=== PATIENT | male | born 1930 | race Caucasian/White ===

== ENCOUNTER → 2017-06-07 | Outpatient (CLI) | payer SELFPAY ==
--- NOTE | 2017-06-09 10:49 | PE ---
EXAMINATION TYPE: PET CT fusion skull to thigh DATE OF EXAM: 06/07/2017 COMPARISON: Chest x-ray 05/15/2017, most recent chest CTs 05/18/2015. Prior PET/CT: 05/27/2015 HISTORY: Lung cancer TECHNIQUE: Following the intravenous administration of 15.48 mCi of F-18 FDG, whole body images are performed from the skull base to the midthigh. Images are reviewed on the computer in the coronal, a xial, and sagittal planes. Reconstructed rotating images are created on independent workstation and reviewed on the computer. A localization and attenuation correction CT is performed in conjunction with the PET scan. DLP: 528.56 mGycm SCAN: Subsequent Blood glucose: 153 mg/dL Average Mediastinum SUV: 1.59 Average Liver SUV: 2.24 FINDINGS: NECK: No abnormal uptake THORAX: No abnormal uptake. There is a 1.2 x 1.0 cm area of increased density within the posterior la teral right upper lobe. Image 83. This area appears larger than the localization CT 05/27/2015. This h as intermediate SUV value 1.14. ABDOMEN: There is somewhat focal uptake within the hepatic flexure with an SUV value of 5.36. Underly ing neoplasm is not excluded. This could be normal bowel uptake PELVIS: There is a focal hot area with an SUV value of 4.4 in the right para-aortic anterior to the i nferior vena cava at the level of bifurcation. This could be associated with radiotracer within the r ight renal collecting system. This is somewhat more medial than typically expected although there is a suggestion of some nondilated ureter in this region. There is a small focus of radiotracer accumula tion within the distal rectum with an SUV value of 4.15. This could be bowel activity. OSSEOUS STRUCTURES: No abnormal uptake LOCALIZATION CT: The ascending thoracic aorta at the level of main pulmonary artery is 3.5 cm per the main pulmonary artery the bifurcation is 3.0 cm coronary artery calcification is present. There is a stent placement and aneurysm repair of the distal thoracic aorta as it enters the abdomen through th e diaphragm. Vascular calcifications within the aorta. Urinary bladder is decompressed and cannot be evaluated. COMPARISON: Aneurysm size is below the diaphragm appears stable. Stent passes through this region. En dovascular leak cannot be evaluated with lack of intravenous contrast. IMPRESSION: 1. Intermediate SUV 1.14 within the increasing density within the posterior lateral right upper lung field this appears larger and more dense than the comparison localization CT 05/27/2015. Low metabolic activity neoplasm is not excluded. 2. Some focal increased uptake within the colon at the hepatic flexure and at the level the rectum of uncertain etiology. This could be physiologic. Somewhat more focal in typically identified and neopl asm should be considered. There is not been a recent colonoscopy or lower GI study, this could furthe r evaluate these regions. A Yellow message has been communicated to Navi Connolly MD~[id number] via the [employer] [facility] system on 06/09/2017 10:47 AM, Message ID [id number].
== END | disposition home or self-care (01) ==
LOC: RADPETMAIN 11:16
PROVIDERS: ATTEND Internal Medicine
DX: C34.91 Malignant neoplasm of unspecified part of right bronchus or lung (principal)
CPT/HCPCS: 78815; A9552

== ENCOUNTER → 2017-08-25 | Outpatient (CLI) | payer MEDICARE ==
[2017-08-25 15:24] LABS: Blood Urea Nitrogen 20 mg/dL (9-20)
--- NOTE | 2017-08-25 16:17 | CT ---
EXAMINATION TYPE: CT chest w con DATE OF EXAM: 08/25/2017 COMPARISON: Chest CT May 18, 2015 and older studies. Most recent PET/CT June 07, 2017 and old er studies. HISTORY: Follow up scan per patient CT DLP: 634 mGycm Automated exposure control for dose reduction was used. CONTRAST: CT scan of the chest is performed with IV Contrast, patient injected with 100 mL of Isovue 300. FINDINGS: LUNGS: Area of previously visualized groundglass opacity posterior lateral right upper lobe is now mo re nodular or solid with spiculated margins measuring 1.5 x 1.0 cm on current study axial image 18, i ncreased prominence from recent PET/CT and is more suspicious in appearance. No new suspicious nodule s or masses are present. There is stable 3 mm nodule superior aspect right lower lobe axial image 29. No pleural effusion or pneumothorax is identified. Tracheobronchial tree is patent. MEDIASTINUM: There are no greater than 1 cm hilar or mediastinal lymph nodes. No pericardial effusi on is seen. [place] Coronary artery calcification is present which is noted marker for coronary arter y disease. There are however post CABG changes with mediastinal clips and sternal wires that are pres ent. There is ectasia to the descending aorta. There are patent stent graft in the distal thoracic ao rta extending into abdominal aorta where there was [facility] [place] aneurysm measuring up to 5.9 cm transversel y axial image 60. OTHER: Cholecystectomy clips are redemonstrated. There is moderate to severe multilevel spurring in the thoracic spine. IMPRESSION: Continued growth and suspicion of posterior lateral right upper lobe lesion. Due to loca tion adjacent to rib may be difficult for percutaneous sampling. Consider repeat PET/CT.
== END | disposition home or self-care (01) ==
LOC: RADCTMAIN 14:49
PROVIDERS: ATTEND Radiology Radiation Oncology
DX: C34.11 Malignant neoplasm of upper lobe, right bronchus or lung (principal); Z88.5 Allergy status to narcotic agent
CPT/HCPCS: 82565; 84520; 71260; 36415; Q9967

== ENCOUNTER → 2017-11-27 | Outpatient (CLI) | payer MEDICARE ==
[2017-11-27 12:16] LABS: Blood Urea Nitrogen 15 mg/dL (9-20)
--- NOTE | 2017-11-27 15:29 | CT ---
EXAMINATION TYPE: CT chest w con DATE OF EXAM: 11/27/2017 COMPARISON: 08/25/2017 HISTORY: 87-year-old male lung cancer, Follow up neoplasm right upper lobe. TECHNIQUE: Contiguous axial scanning of the chest after the administration of 100 mL of Isovue M300. Coronal/sagittal reconstructions performed. CT DLP: 540.7mGycm. Automatic exposure control utilized for a dose reduction. FINDINGS: Median sternotomy wires are present. Heart upper limits of normal in size without pericardial effusio n. Coronary vessel calcifications are present. Question prior interposition graft of the ascending aorta. The aortic root measures 5.1 cm, stable. Proximal arch is aneurysmal 4.8 cm, unchanged. Upper descending thoracic aorta aneurysmal 3.8 cm, unc hanged. Lower descending thoracic aorta measures 3.4 cm. No thoracic lymphadenopathy. Irregular nodule peripheral right upper lobe is stable at 1.5 x 1.1 cm there is strandy atelectasis o r scarring in the lower lungs. No consolidation or pleural effusion. Abdominal aortic aneurysm has a stent beginning in the lower descending thoracic aorta. The upper abd ominal aorta ute sac measures 6.6 x 6.1 cm, not significantly changed. Visualized upper abdomen al so shows cholecystectomy clips Bones: Endplate spondylosis mid to lower thoracic spine and degenerative changes in both shoulders, r ight greater than left. IMPRESSION: 1. Stable irregular nodule peripheral right upper lobe measuring 1.5 x 1.1 cm. 2. No new nodules or suspicious lymphadenopathy. 3. Aneurysmal aorta, stable from 08/25/2017. Suspect a prior interposition graft of the ascending aort a. The aortic root measures up to 5.1 cm and the proximal arch measures 4.8 cm. 4. Additional endovascular stent graft lower descending thoracic aorta and visualized abdominal aorta . Overall ute sac size of 6.6 cm is unchanged.
== END | disposition home or self-care (01) ==
LOC: RADCTMAIN 11:30
PROVIDERS: ATTEND Radiology Radiation Oncology
DX: R91.1 Solitary pulmonary nodule (principal); I71.9 Aortic aneurysm of unspecified site, without rupture; C34.11 Malignant neoplasm of upper lobe, right bronchus or lung; Z95.828 Presence of other vascular implants and grafts; Z88.5 Allergy status to narcotic agent
CPT/HCPCS: 82565; 84520; 71260; 36415; Q9967

== ENCOUNTER → 2018-06-22 | Outpatient (CLI) | payer MEDICARE ==
--- NOTE | 2018-06-22 13:03 | CT ---
EXAMINATION TYPE: CT chest w con DATE OF EXAM: 06/22/2018 COMPARISON: Chest CT November 27, 2017 and older CTs. PET/CT June 07, 2017 and older PET/CT HISTORY: Malignant neoplasm CT DLP: 996.10 mGycm. Automated Exposure Control for Dose Reduction was Utilized. TECHNIQUE: CT scan of the thorax is performed following with IV Contrast, patient injected with 100 ml mL of Isovue 300. FINDINGS: LUNGS: Irregular nodule posterior right upper lobe measures 1.1 x 0.9 cm current study stable or slig htly less prominent. New surrounding groundglass opacity is seen. Slightly more nodular consolidation inferior to this axial image 19 measuring roughly 6 mm is noted. No new left-sided nodularity is pre sent. No pleural effusion or pneumothorax is seen bilaterally. MEDIASTINUM: Post CABG changes with mediastinal clips and sternal wires is redemonstrated. There are no greater than 1 cm hilar or mediastinal lymph nodes. No pericardial effusion is seen. Heart size stable upper limits of normal. Aortic root measures up to 4.8 cm in diameter axial image 30 felt stab le. Aneurysmal prominence aortic arch up to 4.5 cm axial image 16 is stable. There is redemonstration of metallic stent graft beginning in the distal thoracic aorta through aneurysm near diaphragmatic h iatus. Stent graft into the celiac artery is redemonstrated. OTHER: Cholecystectomy clips are present. Multilevel spurring in thoracic spine is again seen. IMPRESSION: Right upper lung nodule felt stable or slightly less prominent. Surrounding groundglass o pacity suggests mild edema new from prior. No definitive new mass or adenopathy. Continued CT monitor ing advised.
== END | disposition home or self-care (01) ==
LOC: RADCTMAIN 10:48
PROVIDERS: ATTEND Radiology Radiation Oncology
DX: C34.11 Malignant neoplasm of upper lobe, right bronchus or lung (principal); R91.8 Other nonspecific abnormal finding of lung field; Z92.3 Personal history of irradiation
CPT/HCPCS: 82565; 84520; 71260; 36415; Q9967

== ENCOUNTER 2018-10-14 13:36 | Inpatient (IN) | payer MEDICARE ==
[2018-10-14] MEDS ORDERED: IPRATROPIUM-ALBUTEROL 3 ML NEB INHALATION STA ×2 (14:16→15:32)
--- NOTE | 2018-10-14 14:19 | ED ---
SOB HPI - General Chief Complaint: Shortness of Breath Stated Complaint: Congestion/ Med Exp Time Seen by Provider: 10/14/18 14:00 Source: patient, family, RN notes reviewed Mode of arrival: ambulatory Limitations: no limitations - History of Present Illness Initial Comments: This 88-year-old male who states he has had for last several days shortness of breath and got progressively worse with a cough with yellow phlegm. He states his start with some rhinorrhea when he is working out in his yard several days ago. He was seen at [facility] and sent here for evaluation. He does have shortness of breath no chest pain cough with yellow phlegm some night sweats but that this apparently happens all time and was noted upon arrival here to have low-grade fever. No complaints again of chest pain or abdominal pain no increased peripheral edema no other modifying factors at this time. He does state his home medication is not helping he did get an updraft treatment at [facility] which he states did not help. MD Complaint: shortness of breath, cough - Related Data Home Medications Medication Instructions Recorded Confirmed Aspirin 81 mg PO DAILY 09/01/13 10/14/18 Omeprazole [PriLOSEC] 20 mg PO DAILY 09/01/13 10/14/18 Ascorbic Acid [Vitamin C] 1,000 mg PO BID 10/14/18 10/14/18 Atorvastatin Calcium [Lipitor] 80 mg PO HS 10/14/18 10/14/18 Fluticasone/Vilanterol [Breo 1 puff INHALATION RT-DAILY 10/14/18 10/14/18 Ellipta 200-25 Mcg INH] Ipratropium-Albuterol Nebulize 3 ml INHALATION RT-QID 10/14/18 10/14/18 [Duoneb 0.5 mg-3 mg/3 ml Soln] Magnesium Oxide 400 mg PO HS 10/14/18 10/14/18 Metoprolol Tartrate [Lopressor] 75 mg PO BID 10/14/18 10/14/18 Multivit-Min/FA/Lycopen/Lutein 1 tab PO DAILY 10/14/18 10/14/18 [Centrum Silver Tablet] Tamsulosin HCl [Flomax] 0.4 mg PO HS 10/14/18 10/14/18 metFORMIN HCL [Glucophage] 500 mg PO BID 10/14/18 10/14/18 Allergies Allergy/AdvReac Type Severity Reaction Status Date / Time morphine AdvReac Nausea & Verified 10/14/18 14:06 Vomiting Review of Systems ROS Statement: Those systems with pertinent positive or pertinent negative responses have been documented in the HPI. ROS Other: All systems not noted in ROS Statement are negative. Past Medical History Past Medical History: COPD, GERD/Reflux, Hyperlipidemia, Hypertension Additional Past Medical History / Comment(s): AORTIC ANEURYSM,HIATAL HERNIA, SOB W/ ACTIVITY History of Any Multi-Drug Resistant Organisms: None Reported Past Surgical History: Cholecystectomy, Orthopedic Surgery Additional Past Surgical History / Comment(s): LEFT EYE RETINA REPAIR Past Anesthesia/Blood Transfusion Reactions: No Reported Reaction Past Psychological History: No Psychological Hx Reported Smoking Status: Former smoker Past Alcohol Use History: None Reported Past Drug Use History: None Reported - Past Family History Father Family Medical History: Deep Vein Thrombosis (DVT) Mother Family Medical History: Cancer General Exam - General Exam Comments Initial Comments: This is a well-developed well-nourished awake alert oriented 3 male Limitations: no limitations General appearance: alert, anxious Head exam: Present: atraumatic, normocephalic, normal inspection Eye exam: Present: normal appearance, PERRL, EOMI. Absent: scleral icterus, conjunctival injection, periorbital swelling ENT exam: Present: normal exam, mucous membranes moist Neck exam: Present: normal inspection. Absent: tenderness, meningismus, lymphadenopathy Respiratory exam: Present: accessory muscle use, decreased breath sounds. Absent: respiratory distress, wheezes, rales, rhonchi, stridor Cardiovascular Exam: Present: regular rate, normal rhythm, normal heart sounds. Absent: systolic murmur, diastolic murmur, rubs, gallop, clicks GI/Abdominal exam: Present: soft, normal bowel sounds. Absent: distended, tenderness, guarding, rebound, rigid Extremities exam: Present: normal inspection, full ROM, normal capillary refill. Absent: tenderness, pedal edema, joint swelling, calf tenderness Back exam: Present: normal inspection Neurological exam: Present: alert, oriented X3, CN II-XII intact Psychiatric exam: Present: normal affect, normal mood Skin exam: Present: warm, dry, intact, normal color. Absent: rash Course Vital Signs 10/14/18 10/14/18 10/14/18 13:55 14:23 14:27 Temperature 99.4 F Pulse Rate 98 98 Respiratory 26 H 24 24 Rate Blood Pressure 145/69 123/67 O2 Sat by Pulse 97 94 L Oximetry 10/14/18 10/14/18 10/14/18 14:55 15:04 15:47 Temperature Pulse Rate 92 90 95 Respiratory 16 Rate Blood Pressure 116/69 O2 Sat by Pulse 94 L Oximetry 10/14/18 15:52 Temperature Pulse Rate 90 Respiratory Rate Blood Pressure O2 Sat by Pulse Oximetry - Reevaluation(s) Reevaluation #1: 10/14/18 16:01 Reevaluation patient after treatment revealed minimal improvement thus far. Reevaluation #2: 10/14/18 16:07 EKG shows sinus rhythm with a 3. Interval 1:30 QRS duration 160 QT 34/477 bundle-branch block with anterior fascicular block LVH specific lateral changes Medical Decision Making - Medical Decision Making I did discuss the findings with the patient family members patient will be admitted I did discuss case with Dr. Alfonso. Pulmonary medicine will be consulted. Patient does have outpatient CAT scan scheduled to be done inpatient without contrast of the chest. - Lab Data Result diagrams: 10/14/18 14:20 10/14/18 14:20 Lab Results 10/14/18 10/14/18 10/14/18 Range/Units 14:20 14:20 14:20 WBC 6.4 (3.8-10.6) k/uL RBC 4.59 (4.30-5.90) m/uL Hgb 13.2 (13.0-17.5) gm/dL Hct 42.5 (39.0-53.0) % MCV 92.7 (80.0-100.0) fL MCH 28.8 (25.0-35.0) pg MCHC 31.1 (31.0-37.0) g/dL RDW 15.8 H (11.5-15.5) % Plt Count 157 (150-450) k/uL Neutrophils % 82 % Lymphocytes % 10 % Monocytes % 5 % Eosinophils % 1 % Basophils % 1 % Neutrophils # 5.2 (1.3-7.7) k/uL Lymphocytes # 0.6 L (1.0-4.8) k/uL Monocytes # 0.3 (0-1.0) k/uL Eosinophils # 0.1 (0-0.7) k/uL Basophils # 0.0 (0-0.2) k/uL PT (9.0-12.0) sec INR (<1.2) APTT (22.0-30.0) sec Sodium 138 (137-145) mmol/L Potassium 3.9 (3.5-5.1) mmol/L Chloride 98 (98-107) mmol/L Carbon Dioxide 32 H (22-30) mmol/L Anion Gap 8 mmol/L BUN 17 (9-20) mg/dL Creatinine 0.86 (0.66-1.25) mg/dL Est GFR (CKD-EPI)AfAm >90 (>60 ml/min/1.73 sqM) Est GFR (CKD-EPI)NonAf 78 (>60 ml/min/1.73 sqM) Glucose 120 H (74-99) mg/dL Plasma Lactic Acid Nitish (0.7-2.0) mmol/L Calcium 8.8 (8.4-10.2) mg/dL Magnesium 1.5 L (1.6-2.3) mg/dL Total Bilirubin 1.7 H (0.2-1.3) mg/dL AST 29 (17-59) U/L ALT 31 (21-72) U/L Alkaline Phosphatase 80 (38-126) U/L Troponin I (0.000-0.034) ng/mL NT-Pro-B Natriuret Pep 1310 pg/mL Total Protein 6.7 (6.3-8.2) g/dL Albumin 4.1 (3.5-5.0) g/dL 10/14/18 10/14/18 10/14/18 Range/Units 14:20 14:20 14:20 WBC (3.8-10.6) k/uL RBC (4.30-5.90) m/uL Hgb (13.0-17.5) gm/dL Hct (39.0-53.0) % MCV (80.0-100.0) fL MCH (25.0-35.0) pg MCHC (31.0-37.0) g/dL RDW (11.5-15.5) % Plt Count (150-450) k/uL Neutrophils % % Lymphocytes % % Monocytes % % Eosinophils % % Basophils % % Neutrophils # (1.3-7.7) k/uL Lymphocytes # (1.0-4.8) k/uL Monocytes # (0-1.0) k/uL Eosinophils # (0-0.7) k/uL Basophils # (0-0.2) k/uL PT 10.8 (9.0-12.0) sec INR 1.0 (<1.2) APTT 25.6 (22.0-30.0) sec Sodium (137-145) mmol/L Potassium (3.5-5.1) mmol/L Chloride (98-107) mmol/L Carbon Dioxide (22-30) mmol/L Anion Gap mmol/L BUN (9-20) mg/dL Creatinine (0.66-1.25) mg/dL Est GFR (CKD-EPI)AfAm (>60 ml/min/1.73 sqM) Est GFR (CKD-EPI)NonAf (>60 ml/min/1.73 sqM) Glucose (74-99) mg/dL Plasma Lactic Acid Nitish 1.4 (0.7-2.0) mmol/L Calcium (8.4-10.2) mg/dL Magnesium (1.6-2.3) mg/dL Total Bilirubin (0.2-1.3) mg/dL AST (17-59) U/L ALT (21-72) U/L Alkaline Phosphatase (38-126) U/L Troponin I 0.012 (0.000-0.034) ng/mL NT-Pro-B Natriuret Pep pg/mL Total Protein (6.3-8.2) g/dL Albumin (3.5-5.0) g/dL - EKG Data -: EKG Interpreted by Me (Sinus rhythm at 83. Interval 138 QRS duration 136 QT since QTC 380/477)) a) - Radiology Data Radiology results: report reviewed (Imaging reveals evidence of a right upper lobe possible infiltrate.), image reviewed Disposition Clinical Impression: Acute exacerbation of chronic obstructive airways disease, Adult respiratory distress syndrome, Pneumonitis, Febrile illness, acute, Failure of outpatient t reatment Disposition: ADMITTED IP TO THIS HOSP Condition: Fair Referrals: Bradly Chen DO [Primary Care Provider] - 1-2 days
[2018-10-14 14:36] LABS: Basophils % (A) 1 %; Eosinophils # (A) 0.1 k/uL (0-0.7); Eosinophils % (A) 1 %; HCT 42.5 % (39.0-53.0); HGB 13.2 gm/dL (13.0-17.5); Lymphocytes # (A) 0.6 k/uL (1.0-4.8); Lymphocytes % (A) 10 %; MCH 28.8 pg (25.0-35.0); MCHC 31.1 g/dL (31.0-37.0); MCV 92.7 fL (80.0-100.0); Mean Platelet Volume 7.7; Monocytes # (A) 0.3 k/uL (0-1.0); Monocytes % (A) 5 %; Neutrophils # (A) 5.2 k/uL (1.3-7.7); Neutrophils % (A) 82 %; Platelet Count 157 k/uL (150-450); RBC 4.59 m/uL (4.30-5.90); RDW 15.8 % (11.5-15.5); WBC 6.4 k/uL (3.8-10.6)
[2018-10-14 14:51] LABS: ALT 31 U/L (21-72); AST 29 U/L (17-59); African American GFR (CKD) >90 (>60 ml/min/1.73 sqM); Albumin 4.1 g/dL (3.5-5.0); Alkaline Phosphatase 80 U/L (38-126); Anion Gap 8 mmol/L; Blood Urea Nitrogen 17 mg/dL (9-20); Calcium 8.8 mg/dL (8.4-10.2); Carbon Dioxide 32 mmol/L (22-30); Chloride 98 mmol/L (98-107); Glucose 120 mg/dL (74-99); Magnesium 1.5 mg/dL (1.6-2.3); Potassium 3.9 mmol/L (3.5-5.1); Sodium 138 mmol/L (137-145); Total Bilirubin 1.7 mg/dL (0.2-1.3); Total Protein 6.7 g/dL (6.3-8.2)
[2018-10-14 14:56] LABS: Partial Thromboplastin Time 25.6 sec (22.0-30.0); Prothrombin Time 10.8 sec (9.0-12.0)
--- NOTE | 2018-10-14 15:04 | XR ---
EXAMINATION TYPE: XR chest 2V DATE OF EXAM: 10/14/2018 COMPARISON: 10/14/2018 and 05/15/2019 HISTORY: 88-year-old male with difficulty breathing and chest congestion TECHNIQUE: PA and lateral views FINDINGS: Heart mildly enlarged. Similar elongated/ectatic thoracic aorta. Median sternotomy wires. Endovascula r aortic stent graft of the lower descending thoracic aorta. Some patchy densities present in the rig ht upper lobe. No pleural effusion. Hyperinflation. IMPRESSION: 1. Mild cardiomegaly and COPD. 2. Similar elongated/ectatic, probably aneurysmal thoracic aorta with lower descending thoracic aorta stent graft. 3. Mild patchy right upper lobe opacity could represent a developing infiltrate.
[2018-10-14] MEDS ORDERED: methylPREDNISolone SOD SUCCI 125 MG/2 ML VIAL IV STA (15:31)
[2018-10-14] MEDS ORDERED: MAGNESIUM SULFATE-D5W PMX 1 GM in DEXTROSE/WATER 1 100ML.BAG IVPB ONE (15:31)
[2018-10-14] MEDS ORDERED: AZITHROMYCIN 500 MG in SODIUM CHLORIDE 0.9% 250 ML IVPB STA (16:09)
[2018-10-14] MEDS ORDERED: PNEUMONIA PROTOCOL UTILIZED 1 EACH MISC PO PRN (16:09)
[2018-10-14] MEDS: SODIUM CHLORIDE 0.9% 1,000 ML IV SCH (16:57)
--- NOTE | 2018-10-14 16:59 | CT ---
EXAMINATION TYPE: CT chest wo/w con DATE OF EXAM: 10/14/2018 COMPARISON: 06/22/2018 HISTORY: Shortness of breath and chest congestion, history of lung cancer. CT DLP: 1207.7 mGycm Automated exposure control for dose reduction was used. CONTRAST: CT scan of the chest is performed without and with IV Contrast, patient injected with 100 mL of Isovu e 300. FINDINGS: There is a dilated thoracic esophagus with retained food material. Dilation extends to the left pulmo nary vein. There is pleural thickening in mild patchy infiltrate in the lateral aspect right upper lobe. There i s no pleural effusion. There is stent in the lower thoracic aorta. There is no pericardial effusion. Thoracic aorta is atheromatous. 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 There is 5 cm aneurysm o f the root of the thoracic aorta. There is coronary artery calcification. There is 6.8 cm aneurysm of the lower thoracic and upper abdominal aorta. There is normal contrast opacification of the aortic s tent. There are clips from cholecystectomy. There is no mediastinal adenopathy. There are no hilar ma sses. There is multilevel spondylotic changes in the thoracic spine. There is no compression fracture. IMPRESSION: There is a patchy reticular nodular pulmonary infiltrate in the lateral aspect right upp er lobe with adjacent pleural thickening. This is unchanged compared to old exam and would be consist ent with treated lung cancer. There is dilated thoracic esophagus with retained food material that is a change compared to old exam and consistent with obstruction. Aneurysmal thoracic and abdominal aorta unchanged.
[2018-10-14 19:21] VITALS: BMI 37.0
[2018-10-14] MEDS: ALBUTEROL NEBULIZED 2.5 MG/3 ML INHALATION SCH (20:30)
[2018-10-14] MEDS: TAMSULOSIN 0.4 MG CAP.ER.24H PO SCH (20:37)
[2018-10-14] MEDS: METOPROLOL TARTRATE 50 MG TAB PO SCH (20:37)
[2018-10-14] MEDS: ASCORBIC ACID 500 MG TAB PO SCH (20:37)
[2018-10-14] MEDS: ATORVASTATIN 80 MG TAB PO SCH (20:38)
[2018-10-14] MEDS: metFORMIN 500 MG TAB PO SCH (20:38)
[2018-10-14] MEDS: MAGNESIUM OXIDE 400 MG TAB PO SCH (20:38)
[2018-10-14] MEDS: methylPREDNISolone SOD SUCCI 125 MG/2 ML VIAL IV SCH (20:39)
[2018-10-14] MEDS: INSULIN ASPART (NovoLOG) 100 UNIT/ML VIAL SQ SCH (20:50)
[2018-10-14 20:58] LABS: Glucose,Whole Blood 239 mg/dL (75-99)
[2018-10-15] MEDS: ALBUTEROL NEBULIZED 2.5 MG/3 ML INHALATION SCH ×7 (00:04→23:15)
[2018-10-15] MEDS: methylPREDNISolone SOD SUCCI 125 MG/2 ML VIAL IV SCH ×4 (06:04→23:43)
[2018-10-15 07:19] LABS: Glucose,Whole Blood 186 mg/dL (75-99)
[2018-10-15] MEDS: INSULIN ASPART (NovoLOG) 100 UNIT/ML VIAL SQ SCH ×4 (08:04→21:29)
[2018-10-15] MEDS: METOPROLOL TARTRATE 50 MG TAB PO SCH ×2 (08:05→21:27)
[2018-10-15] MEDS: ASPIRIN 81 MG PO SCH (08:07)
[2018-10-15] MEDS: ASCORBIC ACID 500 MG TAB PO SCH ×2 (08:07→21:27)
[2018-10-15] MEDS: metFORMIN 500 MG TAB PO SCH ×2 (08:07→21:28)
[2018-10-15] MEDS: MULTIVITAMINS, THERA 1 EACH TAB PO SCH (08:07)
[2018-10-15] MEDS: PANTOPRAZOLE 40 MG TABLET PO SCH (08:07)
[2018-10-15] MEDS: SYMBICORT 160-4.5 MCG INHALER INHALATION SCH ×2 (08:30→18:52)
--- NOTE | 2018-10-15 08:32 | XR ---
EXAMINATION TYPE: XR chest 2V DATE OF EXAM: 10/15/2018 COMPARISON: 10/14/2018 TECHNIQUE: PA and lateral views submitted. HISTORY: Cough FINDINGS: The lungs are clear and there is no pneumothorax, pleural effusion, or focal pneumonia. Heart is en larged and is postoperative changes. Arthropathy of the shoulders. A stent is seen overlying the retr ocardiac region. Aneurysmal dilation of the ascending aorta suspected. Vague density in the right upp er lobe noted. IMPRESSION: 1. Vague patchy infiltrate right upper lobe persists. Differential diagnosis would include developing pneumonia. Pulmonary nodule or mass not excluded. 2. Thoracic aortic aneurysm..
[2018-10-15 12:21] LABS: Glucose,Whole Blood 163 mg/dL (75-99)
--- NOTE | 2018-10-15 14:48 | FL ---
EXAMINATION TYPE: FL barium swallow DATE OF EXAM: 10/15/2018 CLINICAL HISTORY: Dysphasia TECHNIQUE: A single contrast esophagram is performed utilizing air and barium. A total of 59 second s of fluoroscopic time was utilized during procedure. COMPARISON: None FINDINGS: The esophagus appears prominent in size. There is a localized area of narrowing of the mid to distal esophagus below the level the aortic arch. Additionally is a smooth tapered narrowing of th e GE junction. Contrast does pass through into the stomach without evidence of complete obstruction. There is mild delay. No extravasation. Postsurgical changes involving the aorta and mediastinum incidentally noted. IMPRESSION: 1. There appears to be a area of narrowing of the mid to distal esophagus. A second area of narrowin g at the GE junction appears to smoothly taper. Although there is mild delay there is no evidence of complete obstruction. There is a thoracic aortic aneurysm which does cross the esophagus in this re gion and may exert some external compression. However, mild irregularity of the wall is noted and dir ect visualization is recommended to exclude mucosal lesion.
--- NOTE | 2018-10-15 16:15 | P.CNPUL ---
History of Present Illness Consult date: 10/15/18 Requesting physician: Bradly Chen Reason for consult: dyspnea Chief complaint: Shortness of breath, cough, congestion History of present illness: This is a very pleasant 88-year-old gentleman who follows with Dr. Chen as his primary care physician. He has history of hypertension, hyperlipidemia, diabetes mellitus, chronic obstructive pulmonary disease and is treated with BreNoe lovelace's. 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 He follows with Dr. Connolly in our office for the same. presented here to the emergency room yesterday with complaints of increasing shortness of breath, cough or congestion. He states he had been out in the yard and he started with runny nose which she felt was draining into his lungs. He does have yellow productive sputum. No chest pain, palpitations lightheadedness or dizziness. He has been having issues with difficulty in swallowing. Chest x-ray reveals a vague patchy infiltrate in the right upper lobe. Pulmonary mass not excluded. He did have a PET scan back in 2018 that had a suspicion for low intensity neoplasm. CAT scan of the chest revealed patchy reticular nodular pulmonary infiltrate in the lateral aspect of the right upper lobe with adjacent pleural thickening. Unchanged compared to previous and would be consistent with treated lung cancer. There is dilated thoracic esophagus with retained food material consistent with obstruction. 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 He is seen today in consultation on the regular medical floor. He is currently sitting up in a chair at the bedside. Awake and alert in no acute distress. He does have a yellow greenish productive cough. He is currently afebrile. Maintaining O2 saturations in the 90s on 3 L/m per nasal cannula. Hemodynamically stable. White count 6.4. Hemoglobin 13.2. Creatinine 0.86. ProBNP 1310. He's been initiated on Symbicort, IV Solu- Medrol. Antibiotics in the form of ceftriaxone and azithromycin. A barium swallow revealed an area of narrowing of the mid to distal esophagus. A second area of narrowing at the GE junction appeased to smoothly taper. There is mild delay but no evidence of complete obstruction. There is a thoracic aortic aneurysm which does cross the esophagus in this region and may exert some exerti onal compression. There is mild irregularity of the wall and direct visualization is recommended to exclude mucosal lesion. Review of Systems REVIEW OF SYSTEMS: CONSTITUTIONAL: Denies any recent significant weight loss or weight gain. EYES: Denies change in vision. EARS, NOSE, MOUTH, THROAT: Denies headaches, denies sore throat. CARDIOVASCULAR: Denies chest pain, palpitations or syncopal episodes. RESPIRATORY: Positive for shortness of breath, cough, congestion no hemoptysis. GASTROINTESTINAL: Denies change in appetite, denies abdominal pain GENITOURINARY: Denies hematuria, denies infections. MUSKULOSKELETAL: Denies pain, denies swelling. INTEGUMENTARY: Denies rash, denies eczema. NEUROLOGICAL: Denies recent memory loss, no recent seizure activity. PSYCHIATRIC: Denies anxiety, denies depression. HEMATOLOGIC/LYMPHATIC: Denies anemia, denies enlarged lymph nodes. Past Medical History Past Medical History: COPD, GERD/Reflux, Hyperlipidemia, Hypertension Additional Past Medical History / Comment(s): AORTIC ANEURYSM,HIATAL HERNIA, SOB W/ ACTIVITY History of Any Multi-Drug Resistant Organisms: None Reported Past Surgical History: Cholecystectomy, Orthopedic Surgery Additional Past Surgical History / Comment(s): LEFT EYE RETINA REPAIR Past Anesthesia/Blood Transfusion Reactions: No Reported Reaction Past Psychological History: No Psychological Hx Reported Smoking Status: Former smoker Past Alcohol Use History: None Reported Past Drug Use History: None Reported - Past Family History Father Family Medical History: Deep Vein Thrombosis (DVT) Additional Family Medical History / Comment(s): from blood clot Mother Family Medical History: Cancer Additional Family Medical History / Comment(s): Lung Medications and Allergies Home Medications Medication Instructions Recorded Confirmed Type Aspirin 81 mg PO DAILY 09/01/13 10/14/18 History Omeprazole [PriLOSEC] 20 mg PO DAILY 09/01/13 10/14/18 History Ascorbic Acid [Vitamin C] 1,000 mg PO BID 10/14/18 10/14/18 History Atorvastatin Calcium [Lipitor] 80 mg PO HS 10/14/18 10/14/18 History Fluticasone/Vilanterol [Breo 1 puff INHALATION RT-DAILY 10/14/18 10/14/18 History Ellipta 200-25 Mcg INH] Ipratropium-Albuterol Nebulize 3 ml INHALATION RT-QID 10/14/18 10/14/18 History [Duoneb 0.5 mg-3 mg/3 ml Soln] Magnesium Oxide 400 mg PO HS 10/14/18 10/14/18 History Metoprolol Tartrate [Lopressor] 75 mg PO BID 10/14/18 10/14/18 History Multivit-Min/FA/Lycopen/Lutein 1 tab PO DAILY 10/14/18 10/14/18 History [Centrum Silver Tablet] Tamsulosin HCl [Flomax] 0.4 mg PO HS 10/14/18 10/14/18 History metFORMIN HCL [Glucophage] 500 mg PO BID 10/14/18 10/14/18 History Allergies Allergy/AdvReac Type Severity Reaction Status Date / Time morphine AdvReac Nausea & Verified 10/14/18 14:06 Vomiting Physical Exam Vitals: Vital Signs Temp Pulse Pulse Resp BP BP Pulse Ox 10/15/18 15:11 85 10/15/18 15:02 84 10/15/18 13:08 97.6 F 93 20 137/70 94 L 10/15/18 12:18 84 10/15/18 12:06 84 10/15/18 08:43 84 10/15/18 08:30 84 10/15/18 08:00 87 17 10/15/18 06:25 97.9 F 87 17 132/66 94 L 10/15/18 04:12 84 10/15/18 03:59 88 10/15/18 00:17 88 10/15/18 00:06 84 10/14/18 21:00 98.0 F 74 20 153/68 94 L 10/14/18 20:43 88 10/14/18 20:32 90 10/14/18 19:46 98 20 10/14/18 18:15 98.0 F 98 20 169/72 92 L 10/14/18 17:33 89 16 151/89 97 10/14/18 16:58 97 18 138/66 93 L 10/14/18 16:02 91 Intake and Output 10/15/18 10/15/18 10/15/18 06:59 14:59 22:59 Intake Total 120 960 Balance 120 960 Intake: Oral 120 960 Other: Voiding Method Toilet Urinal # Voids 1 2 GENERAL EXAM: Alert, comfortable in no apparent distress. On 3 L nasal cannula. HEAD: Normocephalic. EYES: Normal reaction of pupils, equal size. NOSE: Clear with pink turbinates. THROAT: No erythema or exudates. NECK: No masses, no JVD. CHEST: No chest wall deformity. LUNGS: Equal air entry with bilateral scattered rhonchi. CVS: S1 and S2 normal with no audible murmur, regular rhythm. ABDOMEN: No hepatosplenomegaly, normal bowel sounds, no guarding or rigidity. SPINE: No scoliosis or deformity SKIN: No rashes CENTRAL NERVOUS SYSTEM: No focal deficits, tone is normal in all 4 extremities. EXTREMITIES: There is no peripheral edema. No clubbing, no cyanosis. Peripheral pulses are intact. Results - Laboratory Findings CBC and BMP: 10/14/18 14:20 10/14/18 14:20 PT/INR, D-dimer PT 10.8 sec (9.0-12.0) 10/14/18 14:20 INR 1.0 (<1.2) 10/14/18 14:20 Abnormal lab findings: Abnormal Labs 10/14/18 10/14/18 10/14/18 14:20 14:20 20:38 RDW 15.8 H Lymphocytes # 0.6 L Carbon Dioxide 32 H Glucose 120 H POC Glucose (mg/dL) 239 H Magnesium 1.5 L Total Bilirubin 1.7 H 10/15/18 10/15/18 07:16 12:15 RDW Lymphocytes # Carbon Dioxide Glucose POC Glucose (mg/dL) 186 H 163 H Magnesium Total Bilirubin - Diagnostic Findings Chest x-ray: image reviewed CT scan - chest: image reviewed Assessment and Plan Assessment: Impression: #1 Acute hypoxic respiratory failure secondary to an acute exacerbation of chronic obstructive pulmonary disease, complicated by purulent tracheobronchitis. 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 Follow-up CTs in the outpatient setting. #3 Dysphagia in a patient found to have an area of narrowing in the mid to distal esophagus. A second area of narrowing at the GE junction. Mild delay but no evidence of complete obstruction. 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 There is mild irregularity of the wall and direct visualization is recommended to exclude mucosal lesion. #4 Hypertension. #5 Thrombosis of the thoracic aorta. #6 Gastroesophageal reflux disease. #7 Hyperlipidemia. #8 Former smoker. Plan: The patient was seen and evaluated by Dr. Connolly. Chest x-ray, CAT scan, barium swallow all reviewed. We'll continue with her current pulmonary medications. Obtain a sputum sample. Continue with current antibiotics. May need further workup regarding the esophageal narrowing and fluid retention. We will continue to follow and make further recommendations based on his clinical status. I, the cosigning physician, performed a history & physical examination of the patient. Lungs sounds with few scattered rhonchi. Maintaining good O2 saturations in the 90s on 3 L/m per nasal cannula. I discussed the assessment and plan of care with my nurse practitioner, Radha Zavala. I attest to the above note as dictated by her. Time with Patient: Greater than 30
[2018-10-15 17:06] LABS: Glucose,Whole Blood 225 mg/dL (75-99)
[2018-10-15] MEDS: AZITHROMYCIN 500 MG TAB PO SCH (17:41)
[2018-10-15] MEDS: SODIUM CHLORIDE 0.9% 1,000 ML IV SCH (17:41)
--- NOTE | 2018-10-15 20:24 | P.HPIM ---
History of Present Illness H&P Date: 10/14/18 Chief Complaint: Shortness of breath Is a 88-year-old male with a known history of COPD, hypertension, hyperlipidemia, history of I aortic aneurysm and lung cancer right upper lobe status post radiation treatment in June 2017 presents to ER with complaints of worsening shortness of breath and cough with yellow sputum production for the past few days. pt says that he has sweating all the time. T-max was 99.4 on admission. Patient says that he had runny nose while he was working out in his yard several days ago. Patient was seen at [facility] where he was found have hypoxic and was sent to ER for further management. Patient follows with Dr. Connolly as an outpatient and is supposed to get CT chest for possible nodule on Friday. Denied any complaints of fever or chills. No nausea vomiting or diarrhea or abdominal pain. No dysuria or hematuria. Denied any chest pain. Patient was wheezing on admission. Denied any increased leg swelling. Patient tried updrafts which did not help and presents to ER he had Chest x-ray showed mild cardiomegaly and COPD, similar elongated/ectatic, probably aneurysmal thoracic aorta with lower descending thoracic aorta stent graft. Mild patchy right right upper lobe opacity could represent a developing infiltrate. CT chest showed there is a patchy reticular nodular pulmonary infiltrate in the lateral aspect of the right upper lobe with adjacent pleural thickening. This is unchanged compared to old exam and would be consistent with treated lung cancer. Magnesium 1.5 and proBNP 1310 WBC 6.4 and hemoglobin 13.2 BUN 17 and creatinine 0.86 Review of Systems Constitutional: Patient denies any fever or chills . No generalized weakness or weight loss. Abdomen: Patient denied nausea vomiting and diarrhea and abdominal pain. Cardiovascular: Patient denies any chest pain or short of breath no palpitations. Respiratory: cough With sputum production and shortness of breath Neurologic: Patient denied any numbness or tingling headache. Musculoskeletal: Patient denies any complaints of joint swelling or deformity. Skin: Negative Psychiatric: Negative Endocrine: No heat or cold intolerance. No recent weight gain. Genitourinary: No dysuria or hematuria. All other 14 point ROS negative except the above Past Medical History Past Medical History: COPD, GERD/Reflux, Hyperlipidemia, Hypertension Additional Past Medical History / Comment(s): AORTIC ANEURYSM,HIATAL HERNIA, SOB W/ ACTIVITY History of Any Multi-Drug Resistant Organisms: None Reported Past Surgical History: Cholecystectomy, Orthopedic Surgery Additional Past Surgical History / Comment(s): LEFT EYE RETINA REPAIR Past Anesthesia/Blood Transfusion Reactions: No Reported Reaction Past Psychological History: No Psychological Hx Reported Smoking Status: Former smoker Past Alcohol Use History: None Reported Past Drug Use History: None Reported - Past Family History Father Family Medical History: Deep Vein Thrombosis (DVT) Additional Family Medical History / Comment(s): from blood clot Mother Family Medical History: Cancer Additional Family Medical History / Comment(s): Lung Medications and Allergies Home Medications Medication Instructions Recorded Confirmed Type Aspirin 81 mg PO DAILY 09/01/13 10/14/18 History Omeprazole [PriLOSEC] 20 mg PO DAILY 09/01/13 10/14/18 History Ascorbic Acid [Vitamin C] 1,000 mg PO BID 10/14/18 10/14/18 History Atorvastatin Calcium [Lipitor] 80 mg PO HS 10/14/18 10/14/18 History Fluticasone/Vilanterol [Breo 1 puff INHALATION RT-DAILY 10/14/18 10/14/18 History Ellipta 200-25 Mcg INH] Ipratropium-Albuterol Nebulize 3 ml INHALATION RT-QID 10/14/18 10/14/18 History [Duoneb 0.5 mg-3 mg/3 ml Soln] Magnesium Oxide 400 mg PO HS 10/14/18 10/14/18 History Metoprolol Tartrate [Lopressor] 75 mg PO BID 10/14/18 10/14/18 History Multivit-Min/FA/Lycopen/Lutein 1 tab PO DAILY 10/14/18 10/14/18 History [Centrum Silver Tablet] Tamsulosin HCl [Flomax] 0.4 mg PO HS 10/14/18 10/14/18 History metFORMIN HCL [Glucophage] 500 mg PO BID 10/14/18 10/14/18 History Allergies Allergy/AdvReac Type Severity Reaction Status Date / Time morphine AdvReac Nausea & Verified 10/14/18 14:06 Vomiting Physical Exam Vitals: Vital Signs Temp Pulse Pulse Resp BP BP Pulse Ox 10/14/18 20:43 88 10/14/18 20:32 90 10/14/18 19:46 98 20 10/14/18 18:15 98.0 F 98 20 169/72 92 L 10/14/18 17:33 89 16 151/89 97 10/14/18 16:58 97 18 138/66 93 L 10/14/18 16:02 91 10/14/18 15:52 90 10/14/18 15:47 95 16 116/69 94 L 10/14/18 15:04 90 10/14/18 14:55 92 10/14/18 14:27 98 24 123/67 94 L 10/14/18 14:23 24 10/14/18 13:55 99.4 F 98 26 H 145/69 97 Intake and Output 10/14/18 10/14/18 10/14/18 06:59 14:59 22:59 Other: Voiding Method Toilet Urinal Weight 113.398 kg PHYSICAL EXAMINATION: Patient is lying in the bed comfortably, no acute distress, awake alert and oriented.. HEENT: Normocephalic. Neck is supple. Pupils reactive. Nostrils clear. Oral cavity is moist. Ears reveal no drainage. Neck reveals no JVD, carotid bruits, or thyromegaly. CHEST EXAMINATION: Trachea is central. Symmetrical expansion. Bilateral diminished and expiratory wheeze.. CARDIAC: Normal S1, S2 with no gallops. No murmurs ABDOMEN: Soft. Bowel sounds normal. No organomegaly. No abdominal bruits. Extremities: trace edema. No clubbing or cyanosis Neurologically awake, alert, oriented x3 with well-coordinated movements. No f ocal deficits noted Skin: No rash or skin lesions. Psychiatric: Coperative. Nonsuicidal Musculoskeletal: No joint swelling or deformity. Normal range of motion. Results CBC & Chem 7: 10/14/18 14:20 10/14/18 14:20 Labs: Abnormal Lab Results - Last 24 Hours (Table) 10/14/18 10/14/18 10/14/18 Range/Units 14:20 14:20 20:38 RDW 15.8 H (11.5-15.5) % Lymphocytes # 0.6 L (1.0-4.8) k/uL Carbon Dioxide 32 H (22-30) mmol/L Glucose 120 H (74-99) mg/dL POC Glucose (mg/dL) 239 H (75-99) mg/dL Magnesium 1.5 L (1.6-2.3) mg/dL Total Bilirubin 1.7 H (0.2-1.3) mg/dL Thrombosis Risk Factor Assmnt - DVT/VTE Prophylaxis DVT/VTE Prophylaxis: Pharmacologic Prophylaxis ordered - Choose All That Apply Any of the Below Risk Factors Present?: Yes Each Factor Represents 1 point: Abnormal pulmonary function (COPD), Obesity (BMI >25), Serious lung disease incl. pneumonia (< 1month) Other Risk Factors: Yes Each Risk Factor Represents 3 Points: Age 75 years or older, Family history of DVT/PE, History of DVT/PE Other congenital or acquired thrombophilia - If yes, enter type in comment: No Thrombosis Risk Factor Assessment Total Risk Factor Score: 12 Thrombosis Risk Factor Assessment Level: High Risk Assessment and Plan Assessment: Acute COPD exacerbation secondary to purulent tracheobronchitis Possible right upper lobe pneumonia vs chronic RUL infiltrate from previous treated lung cancer History of lung cancer right upper lobe status post radiation [id number] diabetes type 2 Thoracic aortic aneurysm Hypertension Hyperlipidemia GERD Previous history of smoking Hypomagnesemia DVT prophylaxis Plan: Patient will be continued on IV steroids, DuoNeb's and antibiotics ceftriaxone and azithromycin. Oxygen therapy as needed. Replace magnesium. Continue with home medications and follow up closely. Further recommendations based on the clinical course. Discussed with family at bedside in detail. Time with Patient: Greater than 30
[2018-10-15 20:48] LABS: Glucose,Whole Blood 254 mg/dL (75-99)
[2018-10-15] MEDS: ATORVASTATIN 80 MG TAB PO SCH (21:27)
[2018-10-15] MEDS: MAGNESIUM OXIDE 400 MG TAB PO SCH (21:28)
[2018-10-15] MEDS: TAMSULOSIN 0.4 MG CAP.ER.24H PO SCH (21:28)
--- NOTE | 2018-10-15 23:51 | P.PN ---
Subjective Progress Note Date: 10/15/18 Principal diagnosis: Acute COPD exacerbation Is a 88-year-old male with a known history of COPD, hypertension, hyperlipidemia, history of I aortic aneurysm and lung cancer right upper lobe status post radiation treatment in June 2017 presents to ER with complaints of worsening shortness of breath and cough with yellow sputum production for the past few days. pt says that he has sweating all the time. T-max was 99.4 on admission. Patient says that he had runny nose while he was working out in his yard several days ago. Patient was seen at [facility] where he was found have hypoxic and was sent to ER for further management. Patient follows with Dr. Connolly as an outpatient and is supposed to get CT chest for possible nodule on Friday. Denied any complaints of fever or chills. No nausea vomiting or diarrhea or abdominal pain. No dysuria or hematuria. Denied any chest pain. Patient was wheezing on admission. Denied any increased leg swelling. Patient tried updrafts which did not help and presents to ER he had Chest x-ray showed mild cardiomegaly and COPD, similar elongated/ectatic, probably aneurysmal thoracic aorta with lower descending thoracic aorta stent graft. Mild patchy right right upper lobe opacity could represent a developing infiltrate. CT chest showed there is a patchy reticular nodular pulmonary infiltrate in the lateral aspect of the right upper lobe with adjacent pleural thickening. This is unchanged compared to old exam and would be consistent with treated lung cancer. Magnesium 1.5 and proBNP 1310 WBC 6.4 and hemoglobin 13.2 BUN 17 and creatinine 0.86 10/15/2018 Patient is currently sitting in the chair comfortably. Shortness of breath seems to be improved. No complaints of chest pain. Currently saturating well on 2 L nausea cannula. No fever no chills. Continued Antibiotics. Patient had been swallow study showed there appears to be an area of narrowing of the mid to distal esophagus. A second area of narrowing at the GE junction appears to smoothly tapered. Patient was seen by pulmonary. Follow-up sputum culture report. Patient does not have any complaints of nausea vomiting or abdominal pain. Discussed with the family at bedside in detail. Current medications reviewed. Objective - Vital Signs Vital signs: Vital Signs Temp 97.6 F 10/15/18 13:08 Pulse 85 10/15/18 19:05 Resp 20 10/15/18 15:59 BP 137/70 10/15/18 13:08 Pulse Ox 94 L 10/15/18 13:08 Intake & Output 10/15/18 10/15/18 10/16/18 06:59 18:59 06:59 Intake Total 420 960 Balance 420 960 Intake: Oral 420 960 Other: Voiding Method Toilet Toilet Urinal Urinal # Voids 1 2 - Exam PHYSICAL EXAMINATION: Patient is lying in the bed comfortably, no acute distress, awake alert and oriented.. HEENT: Normocephalic. Neck is supple. Pupils reactive. Nostrils clear. Oral cavity is moist. Ears reveal no drainage. Neck reveals no JVD, carotid bruits, or thyromegaly. CHEST EXAMINATION: Trachea is central. Symmetrical expansion. Bilateral diminished entry and wheezing improved... CARDIAC: Normal S1, S2 with no gallops. No murmurs ABDOMEN: Soft. Bowel sounds normal. No organomegaly. No abdominal bruits. Extremities: trace edema. No clubbing or cyanosis Neurologically awake, alert, oriented x3 with well-coordinated movements. No focal deficits noted Skin: No rash or skin lesions. Psychiatric: Coperative. Nonsuicidal Musculoskeletal: No joint swelling or deformity. Normal range of motion. - Labs CBC & Chem 7: 10/14/18 14:20 10/14/18 14:20 Labs: Abnormal Lab Results - Last 24 Hours (Table) 10/14/18 10/15/18 10/15/18 Range/Units 20:38 07:16 12:15 POC Glucose (mg/dL) 239 H 186 H 163 H (75-99) mg/dL 10/15/18 Range/Units 17:04 POC Glucose (mg/dL) 225 H (75-99) mg/dL Microbiology - Last 24 Hours (Table) 10/14/18 14:20 Blood Culture - Preliminary Blood No Growth after 24 hours 10/15/18 02:45 Gram Stain - Preliminary Sputum Assessment and Plan Assessment: Acute COPD exacerbation secondary to purulent tracheobronchitis Acute hypoxic respiratory failure secondary to COPD Dysphagia with narrowing of esophagus in the Barium Swallow evaluation. Possible right upper lobe pneumonia vs chronic RUL infiltrate from previous treated lung cancer History of lung cancer right upper lobe status post radiation [id number] diabetes type 2 Thoracic aortic aneurysm Hypertension Hyperlipidemia GERD Previous history of smoking Hypomagnesemia DVT prophylaxis Plan: Patient will be continued on IV steroids, DuoNeb's and antibiotics ceftriaxone and azithromycin. Oxygen therapy as needed. Replaced magnesium. Continue with home medications and follow up closely. Pulmonary is following. Further recommendations based on the clinical course. Discussed with family at bedside in detail. Time with Patient: Greater than 30
[2018-10-16] MEDS: ALBUTEROL NEBULIZED 2.5 MG/3 ML INHALATION SCH ×6 (03:06→23:15)
[2018-10-16] MEDS: methylPREDNISolone SOD SUCCI 125 MG/2 ML VIAL IV SCH ×3 (05:43→16:58)
[2018-10-16 07:19] LABS: Glucose,Whole Blood 186 mg/dL (75-99)
[2018-10-16] MEDS: INSULIN ASPART (NovoLOG) 100 UNIT/ML VIAL SQ SCH ×4 (07:29→21:56)
[2018-10-16] MEDS: PANTOPRAZOLE 40 MG TABLET PO SCH ×2 (07:30→17:08)
[2018-10-16] MEDS: metFORMIN 500 MG TAB PO SCH ×2 (07:31→21:55)
[2018-10-16] MEDS: ASPIRIN 81 MG PO SCH (07:31)
[2018-10-16] MEDS: FUROSEMIDE 40 MG TAB PO SCH (07:31)
[2018-10-16] MEDS: METOPROLOL TARTRATE 50 MG TAB PO SCH ×2 (07:31→21:55)
[2018-10-16] MEDS: ASCORBIC ACID 500 MG TAB PO SCH ×2 (07:31→21:56)
[2018-10-16] MEDS: MULTIVITAMINS, THERA 1 EACH TAB PO SCH (07:31)
[2018-10-16] MEDS: SYMBICORT 160-4.5 MCG INHALER INHALATION SCH ×2 (08:16→19:25)
--- NOTE | 2018-10-16 11:26 | P.PN ---
Subjective Progress Note Date: 10/16/18 Principal diagnosis: Acute hypoxic respiratory failure secondary to an acute exacerbation of chronic obstructive pulmonary disease, complicated by purulent tracheobronchitis. This is a very pleasant 88-year-old gentleman who follows with Dr. Chen as his primary care physician. He has history of hypertension, hyperlipidemia, diabetes mellitus, chronic obstructive pulmonary disease and is treated with [place]. 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 He follows with Dr. Connolly in our office for the same. presented here to the emergency room yesterday with complaints of increasing shortness of breath, cough or congestion. He states he had been out in the yard and he started with runny nose which she felt was draining into his lungs. He does have yellow productive sputum. No chest pain, palpitations lightheadedness or dizziness. He has been having issues with difficulty in swallowing. Chest x- ray reveals a vague patchy infiltrate in the right upper lobe. Pulmonary mass not excluded. He did have a PET scan back in 2018 that had a suspicion for low intensity neoplasm. CAT scan of the chest revealed patchy reticular nodular pulmonary infiltrate in the lateral aspect of the right upper lobe with adjacent pleural thickening. Unchanged compared to previous and would be consistent with treated lung cancer. There is dilated thoracic esophagus with retained food material consistent with obstruction. 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 He is seen today in consultation on the regular medical floor. He is currently sitting up in a chair at the bedside. Awake and alert in no acute distress. He does have a yellow greenish productive cough. He is currently afebrile. Maintaining O2 saturations in the 90s on 3 L/m per nasal cannula. Hemodynamically stable. White count 6.4. Hemoglobin 13.2. Creatinine 0.86. ProBNP 1310. He's been initiated on Symbicort, IV Solu- Medrol. Antibiotics in the form of ceftriaxone and azithromycin. A barium swallow revealed an area of narrowing of the mid to distal esophagus. A second area of narrowing at the GE junction appeased to smoothly taper. There is mild delay but no evidence of complete obstruction. There is a thoracic aortic aneurysm which does cross the esophagus in this region and may exert some exertional compression. There is mild irregularity of the wall and direct visualization is recommended to exclude mucosal lesion. The patient is seen today 10/16/2018 in follow-up on the regular medical floor. He is currently sitting up in a chair at the bedside. Awake and alert in no acute distress. No worsening shortness of breath. He has a loose nonproductive cough. No chills or night sweats. Blood and sputum cultures pending. He remains on albuterol, Symbicort, IV Solu-Medrol. Antibiotics in the form of ceftriaxone and azithromycin. He is undergoing EGD today following CAT scan findings that show significant amount of fluid fluid and food retained in his esophagus and narrowing noted on barium swallow. Objective - Vital Signs Vital signs: Vital Signs Temp 97.9 F 10/16/18 05:00 Pulse 71 10/16/18 08:12 Resp 18 10/16/18 08:12 BP 150/72 10/16/18 05:00 Pulse Ox 95 10/16/18 08:12 Intake & Output 10/15/18 10/16/18 10/16/18 18:59 06:59 18:59 Intake Total 960 500 Output Total 600 Balance 960 500 -600 Intake: Oral 960 500 Output: Urine 600 Other: Voiding Method Toilet Toilet Urinal Urinal # Voids 2 1 1 # Bowel Movements 1 - Exam GENERAL EXAM: Pleasant 88-year-old gentleman. Alert, comfortable in no apparent distress. On 3 L nasal cannula. HEAD: Normocephalic. EYES: Normal reaction of pupils, equal size. NOSE: Clear with pink turbinates. THROAT: No erythema or exudates. NECK: No masses, no JVD. CHEST: No chest wall deformity. LUNGS: Equal air entry with bilateral scattered rhonchi. CVS: S1 and S2 normal with no audible murmur, regular rhythm. ABDOMEN: No hepatosplenomegaly, normal bowel sounds, no guarding or rigidity. SPINE: No scoliosis or deformity SKIN: No rashes CENTRAL NERVOUS SYSTEM: No focal deficits, tone is normal in all 4 extremities. EXTREMITIES: There is no peripheral edema. No clubbing, no cyanosis. Peripheral pulses are intact. - Labs CBC & Chem 7: 10/14/18 14:20 10/14/18 14:20 Labs: Abnormal Lab Results - Last 24 Hours (Table) 10/15/18 10/15/18 10/15/18 Range/Units 12:15 17:04 20:19 POC Glucose (mg/dL) 163 H 225 H 254 H (75-99) mg/dL 10/16/18 Range/Units 07:08 POC Glucose (mg/dL) 186 H (75-99) mg/dL Microbiology - Last 24 Hours (Table) 10/14/18 03:45 Blood Culture - Preliminary Blood No Growth after 24 hours 10/14/18 04:00 Blood Culture - Preliminary Blood No Growth after 24 hours 10/14/18 14:20 Blood Culture - Preliminary Blood No Growth after 24 hours 10/15/18 02:45 Gram Stain - Preliminary Sputum Assessment and Plan Assessment: Impression: #1 Acute hypoxic respiratory failure secondary to an acute exacerbation of chronic obstructive pulmonary disease, complicated by purulent tracheobronchitis. Sputum culture pending. Currently on ceftriaxone and azithromycin. 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 Follow-up CTs in the outpatient setting. #3 Dysphagia in a patient found to have an area of narrowing in the mid to distal esophagus. A second area of narrowing at the GE junction. Mild delay b ut no evidence of complete obstruction. 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 There is mild irregularity of the wall and direct visualization is recommended to exclude mucosal lesion. #4 Hypertension. #5 Thrombosis of the thoracic aorta. #6 Gastroesophageal reflux disease. #7 Hyperlipidemia. #8 Former smoker. Plan: The patient was seen and evaluated by Dr. Connolly. We'll continue with her current pulmonary medications. Sputum sample pending. Continue with current antibiotics. EGD today regarding the esophageal narrowing and fluid retention. We will continue to follow and make further recommendations based on his clinical status. I, the cosigning physician, performed a history & physical examination of the patient. Lungs sounds with few scattered rhonchi. Maintaining good O2 saturations in the 90s on 3 L/m per nasal cannula. I discussed the assessment and plan of care with my nurse practitioner, Radha Zavala. I attest to the above note as dictated by her.
[2018-10-16 12:31] LABS: Glucose,Whole Blood 179 mg/dL (75-99)
[2018-10-16] MEDS: SODIUM CHLORIDE 0.9% 1,000 ML IV SCH (15:04)
[2018-10-16] MEDS ORDERED: PROPOFOL 10 MG/ML 20 ML VIAL IV ONE (15:55)
[2018-10-16] MEDS ORDERED: LACTATED RINGERS 500 ML IV ONE (16:08)
[2018-10-16 16:54] LABS: Glucose,Whole Blood 205 mg/dL (75-99)
[2018-10-16] MEDS: AZITHROMYCIN 500 MG TAB PO SCH (16:58)
--- NOTE | 2018-10-16 16:59 | P.PCN ---
Date of Procedure: 10/16/18 Description of Procedure: BRIEF HISTORY: A 88-year-old male who presents to the hospital due to shortness breath and cough and is currently being treated for exacerbation of COPD who reported intermittent episodes of dysphagia. He had abnormal barium swallow exam where food debris and narrowing was noted in the distal esophagus. He reports intermittent episodes of dysphagia where he feels like there is a bubble in his chest. He reports that this is relieved with [id number] Tums. He also reports intermittent episodes of vomiting and regurgitation of food. PROCEDURE PERFORMED: Esophagogastroduodenoscopy. PREOPERATIVE DIAGNOSIS: Esophageal dysphagia, abnormal barium swallow. ESTIMATED BLOOD LOSS: Minimal. IV sedation per anesthesia. PROCEDURE: After informed consent was obtained, the patient was brought into the endoscopy unit. IV sedation was administered by Anesthesia under continuous monitoring. Initially the Olympus GIF-190 video endoscope was inserted into the mouth. Esophagus intubated without any difficulty. It was gradually advanced into the stomach and duodenum and carefully examined. The bulb and the second part of the duodenum appeared normal, with biopsies taken. The scope at this time was withdrawn to the stomach, adequately insufflated with air, and upon careful examination, mucosa of the antrum, body, cardia and the fundus appeared grossly normal, however there was diffuse erythema in the antrum and body suggestive of moderate gastritis with biopsies taken. The scope was then withdrawn into the esophagus. The GE junction was located at 43 cm from the incisors. The esophagus appeared normal with no masses, food debris or obstructions, with mid esophageal biopsies taken. There were no erosions or ulcerations seen and the patient tolerated the procedure well. IMPRESSION: 1. Moderate gastritis antrum and body, biopsied. 2. Duodenal biopsies. 3. Mild esophageal biopsies. RECOMMENDATIONS: The findings of this examination were discussed with the patient and his family. Okay to resume diet. Patient should be on twice daily Protonix therapy. If symptoms continue can consider outpatient evaluation with esophageal manometry to rule out motility issue.
--- NOTE | 2018-10-16 17:36 | P.CONS ---
History of Present Illness - Reason for Consult Consult date: 10/16/18 Dysphagia Requesting physician: Keisha Alfonso - Chief Complaint Difficulty swallowing - History of Present Illness 88-year-old male with a medical history significant for hypertension, hyperlipidemia, diabetes mellitus, COPD as well as well-differentiated adenocarcinoma of the right lung for which she underwent ideation therapy who presented to the hospital with complaints of increasing shortness of breath, and congestion. He is currently receiving treatment for an exacerbation of his COPD. In addition he reported issues with his swallowing. The patient states he has been having intermittent episodes of dysphagia primarily to solid food. He reports taking a Tums with relief of symptoms at this time. The patient denies any nausea but does report episodes of vomiting at times when he regurgitates food which she is using. No prior history of peptic ulcer disease reported. He does report that his last colonoscopy was approximately 5 years ago. He is denying any signs or symptoms of GI bleeding. Review of Systems REVIEW OF SYSTEMS: CONSTITUTIONAL: Denies any fevers, chills, weight change or fatigue. CARDIOVASCULAR: Denies any chest pain, palpitations high or low blood pressures RESPIRATORY: Reports shortness of breath with cough and sputum production.. GENITOURINARY: No dysuria or hematuria. MUSCULOSKELETAL: No weakness reported. SKIN: Denies any new rashes or lesions, jaundice or pallor. PSYCHIATRIC: Denies any depression or anxiety. NEUROLOGY: Denies headache, denies any new focal deficits. EARS/NOSE/THROAT: No recent hearing change, congestion, nasal discharge or sore throat. EYES: No pain in eyes, discharge or change in vision. GASTROINTESTINAL: As per HPI. Past Medical History Past Medical History: COPD, GERD/Reflux, Hyperlipidemia, Hypertension Additional Past Medical History / Comment(s): AORTIC ANEURYSM,HIATAL HERNIA, SOB W/ ACTIVITY History of Any Multi-Drug Resistant Organisms: None Reported Past Surgical History: Cholecystectomy, Orthopedic Surgery Additional Past Surgical History / Comment(s): LEFT EYE RETINA REPAIR Past Anesthesia/Blood Transfusion Reactions: No Reported Reaction Past Psychological History: No Psychological Hx Reported Smoking Status: Former smoker Past Alcohol Use History: None Reported Past Drug Use History: None Reported - Past Family History Father Family Medical History: Deep Vein Thrombosis (DVT) Additional Family Medical History / Comment(s): from blood clot Mother Family Medical History: Cancer Additional Family Medical History / Comment(s): Lung Medications and Allergies Home Medications Medication Instructions Recorded Confirmed Type Aspirin 81 mg PO DAILY 09/01/13 10/14/18 History Omeprazole [PriLOSEC] 20 mg PO DAILY 09/01/13 10/14/18 History Ascorbic Acid [Vitamin C] 1,000 mg PO BID 10/14/18 10/14/18 History Atorvastatin Calcium [Lipitor] 80 mg PO HS 10/14/18 10/14/18 History Fluticasone/Vilanterol [Breo 1 puff INHALATION RT-DAILY 10/14/18 10/14/18 History Ellipta 200-25 Mcg INH] Ipratropium-Albuterol Nebulize 3 ml INHALATION RT-QID 10/14/18 10/14/18 History [Duoneb 0.5 mg-3 mg/3 ml Soln] Magnesium Oxide 400 mg PO HS 10/14/18 10/14/18 History Metoprolol Tartrate [Lopressor] 75 mg PO BID 10/14/18 10/14/18 History Multivit-Min/FA/Lycopen/Lutein 1 tab PO DAILY 10/14/18 10/14/18 History [Centrum Silver Tablet] Tamsulosin HCl [Flomax] 0.4 mg PO HS 10/14/18 10/14/18 History metFORMIN HCL [Glucophage] 500 mg PO BID 10/14/18 10/14/18 History Allergies Allergy/AdvReac Type Severity Reaction Status Date / Time morphine AdvReac Nausea & Verified 10/14/18 14:06 Vomiting Physical Exam Vitals: Vital Signs Temp Pulse Pulse Resp BP Pulse Ox 10/16/18 14:17 97.5 F L 55 L 22 153/75 96 10/16/18 12:05 83 10/16/18 11:52 85 20 10/16/18 08:12 71 18 95 10/16/18 08:00 82 18 10/16/18 05:00 97.9 F 82 20 150/72 93 L 10/16/18 03:16 80 10/16/18 03:06 78 10/15/18 23:23 80 10/15/18 23:13 82 95 10/15/18 22:00 97.9 F 89 20 145/68 95 10/15/18 19:05 85 10/15/18 18:54 83 06/20/19 15:59 20 10/15/18 15:11 85 Intake and Output 10/16/18 10/16/18 10/16/18 06:59 14:59 22:59 Intake Total 0 Output Total 600 Balance 0 -600 Intake: Oral 0 Output: Urine 600 Other: Voiding Method Toilet Urinal # Voids 1 300 # Bowel Movements 1 On physical examination, patient appears comfortable in no apparent distress. HEAD: Normocephalic, atraumatic. EYES: No scleral icterus. No conjunctival injection. MOUTH: No lesions, tongue midline. NECK: Trachea midline, no gross abnormalities. CHEST: Decreased respiratory noises in all lung shearer with some wheezing and coarse sounds appreciated HEART: S1 and S1-S2 appreciated, tachycardic. ABDOMEN: Soft, obese. Bowel sounds are positive. No organomegaly. No guarding or rigidity. EXTREMITIES: No pedal edema. SKIN: No rashes, no jaundice. NEUROLOGIC: Alert and oriented x3. No focal deficits. Results CBC & Chem 7: 10/14/18 14:20 10/14/18 14:20 Labs: Abnormal Lab Results - Last 24 Hours (Table) 10/15/18 10/15/18 10/16/18 Range/Units 17:04 20: 07:08 POC Glucose (mg/dL) 225 H 254 H 186 H (75-99) mg/dL 10/16/18 Range/Units 12:26 POC Glucose (mg/dL) 179 H (75-99) mg/dL Microbiology - Last 24 Hours (Table) 10/15/18 02:45 Gram Stain - Preliminary Sputum Sputum Culture - Preliminary 10/14/18 03:45 Blood Culture - Preliminary Blood No Growth after 24 hours 10/14/18 04:00 Blood Culture - Preliminary Blood No Growth after 24 hours 10/14/18 14:20 Blood Culture - Preliminary Blood No Growth after [address] scan - abdomen: report reviewed (CT showed findings of a thoracic esophagus which was dilated and fluid-filled with some tapering noted.) Assessment and Plan (1) Esophageal dysphagia Narrative/Plan: Pleasant 88-year-old male who presented with shortness of breath cough and sputum production and was found to have an acute exacerbation of his underlying COPD. Currently he is receiving management for that. He is complaining of intermittent episodes of dysphagia primarily to solids with regurgitation of food. Imaging was performed with a computed tomography scan of the chest, nothing on a dilated thoracic esophagus with retained food material consistent with obstruction. He also had a barium swallow which revealed an area of narrowing in the mid to distal esophagus a second area of narrowing at the GE ju nction which appeared smoothly tapered with mild delay but no evidence of obstruction. Unclear etiology of symptoms differential includes Schatzki's ring, underlying motility issue, esophagitis or other etiology. Current Visit: Yes Status: Acute Code(s): R13.10 - DYSPHAGIA, UNSPECIFIED SNOMED Code(s): 69648517 (2) Acute exacerbation of chronic obstructive airways disease Current Visit: Yes Status: Acute Code(s): J44.1 - CHRONIC OBSTRUCTIVE PULMONARY DISEASE W (ACUTE) EXACERBATION SNOMED Code(s): 421760346 Plan: Supportive care Continue other medical management and treatment of COPD Keep patient nothing by mouth Plan for EGD today Continue Protonix therapy Further recommendations pending findings of upper endoscopy Thank you for allowing us to participate in the care of this patient we will continue to follow
[2018-10-16 20:48] LABS: Glucose,Whole Blood 307 mg/dL (75-99)
[2018-10-16] MEDS: MAGNESIUM OXIDE 400 MG TAB PO SCH (21:55)
[2018-10-16] MEDS: ATORVASTATIN 80 MG TAB PO SCH (21:55)
[2018-10-16] MEDS: TAMSULOSIN 0.4 MG CAP.ER.24H PO SCH (21:55)
--- NOTE | 2018-10-16 22:44 | P.PN ---
Subjective Progress Note Date: 10/16/18 Principal diagnosis: Acute COPD exacerbation Is a 88-year-old male with a known history of COPD, hypertension, hyperlipidemia, history of I aortic aneurysm and lung cancer right upper lobe status post radiation treatment in June 2017 presents to ER with complaints of worsening shortness of breath and cough with yellow sputum production for the past few days. pt says that he has sweating all the time. T-max was 99.4 on admission. Patient says that he had runny nose while he was working out in his yard several days ago. Patient was seen at [facility] where he was found have hypoxic and was sent to ER for further management. Patient follows with Dr. Connolly as an outpatient and is supposed to get CT chest for possible nodule on Friday. Denied any complaints of fever or chills. No nausea vomiting or diarrhea or abdominal pain. No dysuria or hematuria. Denied any chest pain. Patient was wheezing on admission. Denied any increased leg swelling. Patient tried updrafts which did not help and presents to ER he had Chest x-ray showed mild cardiomegaly and COPD, similar elongated/ectatic, probably aneurysmal thoracic aorta with lower descending thoracic aorta stent graft. Mild patchy right right upper lobe opacity could represent a developing infiltrate. CT chest showed there is a patchy reticular nodular pulmonary infiltrate in the lateral aspect of the right upper lobe with adjacent pleural thickening. This is unchanged compared to old exam and would be consistent with treated lung cancer. Magnesium 1.5 and proBNP 1310 WBC 6.4 and hemoglobin 13.2 BUN 17 and creatinine 0.86 10/15/2018 Patient is currently sitting in the chair comfortably. Shortness of breath seems to be improved. No complaints of chest pain. Currently saturating well on 2 L nausea cannula. No fever no chills. Continued Antibiotics. Patient had been swallow study showed there appears to be an area of narrowing of the mid to distal esophagus. A second area of narrowing at the GE junction appears to smoothly tapered. Patient was seen by pulmonary. Follow-up sputum culture report. Patient does not have any complaints of nausea vomiting or abdominal pain. 10/16/2018 Patient is currently awake alert oriented 3 and is sitting in the chair. Breathing status did improve. Patient is being continued on IV steroids and DuoNeb's. And antibiotics as well for possible right upper lobe pneumonia. Patient is scheduled for EGD due to dysphagia and narrowed esophagus showed in the barium swallow evaluation. No fever no chills. No chest pain. No nausea. No dizziness or lightheadedness. Discussed with the family at bedside in detail. Current medications reviewed. Objective - Vital Signs Vital signs: Vital Signs Temp 97.5 F L 10/16/18 14:17 Pulse 80 10/16/18 15:31 Resp 22 10/16/18 14:17 BP 153/75 10/16/18 14:17 Pulse Ox 94 L 10/16/18 15:23 Intake & Output 10/15/18 10/16/18 10/16/18 18:59 06:59 18:59 Intake Total 960 500 Output Total 600 Balance 960 500 -600 Intake: Oral 960 500 Output: Urine 600 Other: Voiding Method Toilet Toilet Urinal Urinal # Voids 2 1 300 # Bowel Movements 1 - Exam PHYSICAL EXAMINATION: Patient is lying in the bed comfortably, no acute distress, awake alert and oriented.. HEENT: Normocephalic. Neck is supple. Pupils reactive. Nostrils clear. Oral cavity is moist. Ears reveal no drainage. Neck reveals no JVD, carotid bruits, or thyromegaly. CHEST EXAMINATION: Trachea is central. Symmetrical expansion. Bilateral air entry improved and minimal expiratory wheeze.... CARDIAC: Normal S1, S2 with no gallops. No murmurs ABDOMEN: Soft. Bowel sounds normal. No organomegaly. No abdominal bruits. Extremities: trace edema. No clubbing or cyanosis Neurologically awake, alert, oriented x3 with well-coordinated movements. No focal deficits noted Skin: No rash or skin lesions. Psychiatric: Coperative. Nonsuicidal Musculoskeletal: No joint swelling or deformity. Normal range of motion. - Labs CBC & Chem 7: 10/14/18 14:20 10/14/18 14:20 Labs: Abnormal Lab Results - Last 24 Hours (Table) 10/15/18 10/15/18 10/16/18 Range/Units 17:04 20: 07:08 POC Glucose (mg/dL) 225 H 254 H 186 H (75-99) mg/dL 10/16/18 Range/Units 12:26 POC Glucose (mg/dL) 179 H (75-99) mg/dL Microbiology - Last 24 Hours (Table) 10/15/18 02:45 Gram Stain - Preliminary Sputum Sputum Culture - Preliminary 10/14/18 03:45 Blood Culture - Preliminary Blood No Growth after 24 hours 10/14/18 04:00 Blood Culture - Preliminary Blood No Growth after 24 hours 10/14/18 14:20 Blood Culture - Preliminary Blood No Growth after 24 hours Assessment and Plan Assessment: Acute COPD exacerbation secondary to purulent tracheobronchitis. Acute hypoxic respiratory failure secondary to COPD Dysphagia with narrowing of esophagus in the Barium Swallow evaluation. EGD today. Possible right upper lobe pneumonia vs chronic RUL infiltrate from previous treated lung cancer History of lung cancer right upper lobe status post radiation [id number] diabetes type 2 Thoracic aortic aneurysm Hypertension Hyperlipidemia GERD Previous history of smoking Hypomagnesemia DVT prophylaxis Plan: Patient will be continued on IV steroids, DuoNeb's and antibiotics ceftriaxone a nd azithromycin. Oxygen therapy as needed. Replaced magnesium. Continue with home medications and follow up closely. Pulmonary is following. Patient is scheduled for EGD today. Further recommendations based on the clinical course. Discussed with family at bedside in detail. Time with Patient: Greater than 30
[2018-10-17] MEDS: methylPREDNISolone SOD SUCCI 125 MG/2 ML VIAL IV SCH ×3 (00:04→13:00)
[2018-10-17] MEDS: ALBUTEROL NEBULIZED 2.5 MG/3 ML INHALATION SCH ×4 (03:24→15:43)
[2018-10-17 07:30] LABS: Glucose,Whole Blood 219 mg/dL (75-99)
[2018-10-17] MEDS: ASCORBIC ACID 500 MG TAB PO SCH (07:55)
[2018-10-17] MEDS: MULTIVITAMINS, THERA 1 EACH TAB PO SCH (07:55)
[2018-10-17] MEDS: METOPROLOL TARTRATE 50 MG TAB PO SCH (07:56)
[2018-10-17] MEDS: ASPIRIN 81 MG PO SCH (07:56)
[2018-10-17] MEDS: INSULIN ASPART (NovoLOG) 100 UNIT/ML VIAL SQ SCH ×3 (07:56→18:21)
[2018-10-17] MEDS: PANTOPRAZOLE 40 MG TABLET PO SCH ×2 (07:56→17:22)
[2018-10-17] MEDS: metFORMIN 500 MG TAB PO SCH (07:56)
[2018-10-17] MEDS: SYMBICORT 160-4.5 MCG INHALER INHALATION SCH (08:21)
[2018-10-17 12:10] LABS: Glucose,Whole Blood 162 mg/dL (75-99)
--- NOTE | 2018-10-17 12:15 | P.PN ---
Subjective Progress Note Date: 10/17/18 Principal diagnosis: Acute hypoxic respiratory failure secondary to an acute exacerbation of chronic obstructive pulmonary disease, complicated by purulent tracheobronchitis. This is a very pleasant 88-year-old gentleman who follows with Dr. Chen as his primary care physician. He has history of hypertension, hyperlipidemia, diabetes mellitus, chronic obstructive pulmonary disease and is treated with [place]. 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 He follows with Dr. Connolly in our office for the same. presented here to the emergency room yesterday with complaints of increasing shortness of breath, cough or congestion. He states he had been out in the yard and he started with runny nose which she felt was draining into his lungs. He does have yellow productive sputum. No chest pain, palpitations lightheadedness or dizziness. He has been having issues with difficulty in swallowing. Chest x- ray reveals a vague patchy infiltrate in the right upper lobe. Pulmonary mass not excluded. He did have a PET scan back in 2018 that had a suspicion for low intensity neoplasm. CAT scan of the chest revealed patchy reticular nodular pulmonary infiltrate in the lateral aspect of the right upper lobe with adjacent pleural thickening. Unchanged compared to previous and would be consistent with treated lung cancer. There is dilated thoracic esophagus with retained food material consistent with obstruction. 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 He is seen today in consultation on the regular medical floor. He is currently sitting up in a chair at the bedside. Awake and alert in no acute distress. He does have a yellow greenish productive cough. He is currently afebrile. Maintaining O2 saturations in the 90s on 3 L/m per nasal cannula. Hemodynamically stable. White count 6.4. Hemoglobin 13.2. Creatinine 0.86. ProBNP 1310. He's been initiated on Symbicort, IV Solu- Medrol. Antibiotics in the form of ceftriaxone and azithromycin. A barium swallow revealed an area of narrowing of the mid to distal esophagus. A second area of narrowing at the GE junction appeased to smoothly taper. There is mild delay but no evidence of complete obstruction. There is a thoracic aortic aneurysm which does cross the esophagus in this region and may exert some exertional compression. There is mild irregularity of the wall and direct visualization is recommended to exclude mucosal lesion. The patient is seen today 10/16/2018 in follow-up on the regular medical floor. He is currently sitting up in a chair at the bedside. Awake and alert in no acute distress. No worsening shortness of breath. He has a loose nonproductive cough. No chills or night sweats. Blood and sputum cultures pending. He remains on albuterol, Symbicort, IV Solu-Medrol. Antibiotics in the form of ceftriaxone and azithromycin. He is undergoing EGD today following CAT scan findings that show significant amount of fluid fluid and food retained in his esophagus and narrowing noted on barium swallow. The patient is seen today 10/17/2017 in follow-up on the regular medical floor. Currently sitting up at the bedside. Awake and alert in no acute distress. Continue good O2 saturations in the 90s on 2 L/m per nasal cannula. His been afebrile. Hemodynamically stable. Blood and sputum cultures reveal no growth. He is anxious to go home. Objective - Vital Signs Vital signs: Vital Signs Temp 97.4 F L 10/17/18 04:35 Pulse 92 10/17/18 11:48 Resp 14 10/17/18 04:35 BP 147/71 10/17/18 04:35 Pulse Ox 94 L 10/17/18 04:35 Intake & Output 10/16/18 10/17/18 10/17/18 18:59 06:59 18:59 Intake Total 300 Output Total 600 Balance -300 Intake: IV 300 Output: Urine 600 Other: Voiding Method Toilet Toilet Urinal Urinal # Voids 300 2 # Bowel Movements 1 - Exam GENERAL EXAM: Pleasant 88-year-old gentleman. Alert, comfortable in no apparent distress. On 2 L nasal cannula. HEAD: Normocephalic. EYES: Normal reaction of pupils, equal size. NOSE: Clear with pink turbinates. THROAT: No erythema or exudates. NECK: No masses, no JVD. CHEST: No chest wall deformity. LUNGS: Equal air entry with bilateral scattered rhonchi. CVS: S1 and S2 normal with no audible murmur, regular rhythm. ABDOMEN: No hepatosplenomegaly, normal bowel sounds, no guarding or rigidity. SPINE: No scoliosis or deformity SKIN: No rashes CENTRAL NERVOUS SYSTEM: No focal deficits, tone is normal in all 4 extremities. EXTREMITIES: There is no peripheral edema. No clubbing, no cyanosis. Peripheral pulses are intact. - Labs CBC & Chem 7: 10/14/18 14:20 10/14/18 14:20 Labs: Abnormal Lab Results - Last 24 Hours (Table) 10/16/18 10/16/18 10/16/18 Range/Units 12:26 16:53 20:39 POC Glucose (mg/dL) 179 H 205 H 307 H (75-99) mg/dL 10/17/18 Range/Units 07:03 POC Glucose (mg/dL) 219 H (75-99) mg/dL Microbiology - Last 24 Hours (Table) 10/15/18 02:45 Gram Stain - Final Sputum Sputum Culture - Final 10/14/18 03:45 Blood Culture - Preliminary Blood No Growth after 48 hours 10/14/18 04:00 Blood Culture - Preliminary Blood No Growth after 48 hours 10/14/18 14:20 Blood Culture - Preliminary Blood No Growth after 48 hours Assessment and Plan Assessment: Impression: #1 Acute hypoxic respiratory failure secondary to an acute exacerbation of chronic obstructive pulmonary disease, complicated by purulent tracheobronchitis. Sputum culture reveals no growth Currently on ceftriaxone and azithromycin. 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 Follow-up CTs in the outpatient setting. #3 Dysphagia in a patient found to have an area of narrowing in the mid to distal esophagus. A second area of narrowing at the GE junction. Mild delay but no evidence of complete obstruction. 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 There is mild irregularity of the wall and direct visualization is recommended to exclude mucosal lesion. EGD performed. #4 Hypertension. #5 Thrombosis of the thoracic aorta. #6 Gastroesophageal reflux disease. #7 Hyperlipidemia. #8 Former smoker. Plan: The patient was seen and evaluated by Dr. Connolly. He is cleared for discharge from the pulmonary standpoint. Complete prednisone burst and taper. Complete course of antibiotics. Continue his home duo nebs and Breo. He'll follow-up in our office in 1-2 weeks' time. He is encouraged to call sooner with any recurr ence of symptoms or other questions or concerns. I, the cosigning physician, performed a history & physical examination of the patient. Lungs sounds with few scattered rhonchi. Maintaining good O2 saturations in the 90s on 2 L/m per nasal cannula. I discussed the assessment and plan of care with my nurse practitioner, Radha Zavala. I attest to the above note as dictated by her.
[2018-10-17 13:46] VITALS: BP 155/74; PULSE 81; RESP 16; TEMP 98.9
[2018-10-17] MEDS: FUROSEMIDE 40 MG TAB PO SCH (14:59)
[2018-10-17] MEDS: SODIUM CHLORIDE 0.9% 1,000 ML IV SCH (16:40)
[2018-10-17 16:48] LABS: Glucose,Whole Blood 214 mg/dL (75-99)
[2018-10-17] MEDS: AZITHROMYCIN 500 MG TAB PO SCH (17:22)
--- NOTE | 2018-10-18 00:51 | DS ---
DISCHARGE SUMMARY FINAL DIAGNOSES: 1. Chronic obstructive pulmonary disease exacerbation with acute purulent tracheobronchitis. 2. Acute hypoxic respiratory failure secondary to chronic obstructive pulmonary disease acute exacerbation. 3. Dysphagia with tenderness with the barium swallow evaluation. 4. Possible right upper lobe pneumonia. 5. History of lung cancer right upper lobe, status post radiation. 6. Noninsulin dependent diabetes type 2. 7. Thoracic aortic aneurysm. 8. Hypertension. 9. Hyperlipidemia. 10.Gastroesophageal reflux disease. 11.Previous history of smoking. 12.Hypomagnesemia. 13.Deep vein thrombosis prophylaxis. 14.Chronic hypoxic respiratory failure. The patient will be discharged in stable condition with guarded prognosis. Discharge cleared by Dr. Connolly. Total time taken 35 minutes. HISTORY OF PRESENT ILLNESS: This 88 -year-old gentleman with a past medical history of multiple medical problems admitted with COPD exacerbation also possible pneumonia. The patient treated with IV antibiotics and steroids. Patient improved significantly. Dr. Connolly cleared the patient for discharge. Patient is keen on going home at this time. Pulse ox is 88 percent. Home O2 adjust medications arranged at this time. On exam, vital signs are stable. Cardio system: S1, S2 muffled. Respiration: Breath sounds diminished in the bases. A few scattered rhonchi and crackles. Abdomen is soft. Nervous System: No focal deficits. DISCHARGE ADVICE AND MEDICATIONS: 1. Diet is cardiac diet. 2. Activity limited until followup. 3. Follow up with Dr. Gustavo Sanchez in one to two weeks. 4. Follow with Dr. Connolly as recommended. 5. Home care is being arranged. DISCHARGE MEDICATIONS: 1. Aspirin 81 mg p.o. daily. 2. Breo Ellipta 200/25 1 puff daily. 3. Multiple vitamins one p.o. daily. 4. DuoNeb q.i.d. 5. Flomax 0.4 q.h.s. 6. Glucophage 500 mg p.o. b.i.d. 7. Lipitor 40 mg q.h.s. 8. Lopressor 75 mg p.o. b.i.d. 9. Magnesium oxide 400 mg q.h.s. 10.Prilosec 20 mg p.o. daily. 11.Vitamin C 1000 mg p.o. b.i.d. 12.Lasix 20 mg p.o. daily to be adjusted in the outpatient setting. 13.Prednisone taper 40 mg daily for 3 days, 30 for 3 days, 20 for 3 days, 10 for 3 days. 14.Zithromax 500 mg p.o. daily. Once again, the patient is being discharged in stable condition with guarded prognosis. MMEDVIN / IJN: [id number] /
[2018-10-18] MEDS ORDERED: predniSONE 20 MG TAB PO SCH (09:00)
== END 2018-10-17 18:40 | disposition home health service (06) | DRG 193 ==
LOC: EC 13:36 → 4MS4W 16:15
PROVIDERS: ADMIT Family Medicine; ATTEND Family Medicine
PROC: 0DB68ZX Excision of Stomach, Via Natural or Artificial Opening Endoscopic, Diagnostic (ICD-10-PCS; 2018-10-16)
PROC: 0DB28ZX Excision of Middle Esophagus, Via Natural or Artificial Opening Endoscopic, Diagnostic (ICD-10-PCS; 2018-10-16)
PROC: 0DB98ZX Excision of Duodenum, Via Natural or Artificial Opening Endoscopic, Diagnostic (ICD-10-PCS; principal; 2018-10-16 09:55)
DX: J18.1 Lobar pneumonia, unspecified organism (principal); J96.21 Acute and chronic respiratory failure with hypoxia; J44.1 Chronic obstructive pulmonary disease with (acute) exacerbation; J44.0 Chronic obstructive pulmonary disease with (acute) lower respiratory infection; J20.9 Acute bronchitis, unspecified; I10 Essential (primary) hypertension; E78.5 Hyperlipidemia, unspecified; I71.2 Thoracic aortic aneurysm, without rupture; E11.9 Type 2 diabetes mellitus without complications; E83.42 Hypomagnesemia; K21.9 Gastro-esophageal reflux disease without esophagitis; I71.4 Abdominal aortic aneurysm, without rupture; K29.70 Gastritis, unspecified, without bleeding; R13.14 Dysphagia, pharyngoesophageal phase; E66.9 Obesity, unspecified; Z85.118 Personal history of other malignant neoplasm of bronchus and lung; Z79.82 Long term (current) use of aspirin; Z79.84 Long term (current) use of oral hypoglycemic drugs; Z79.899 Other long term (current) drug therapy; Z79.51 Long term (current) use of inhaled steroids; Z87.891 Personal history of nicotine dependence; Z92.3 Personal history of irradiation; Z90.49 Acquired absence of other specified parts of digestive tract; Z68.36 Body mass index [BMI] 36.0-36.9, adult; Z88.5 Allergy status to narcotic agent
CPT/HCPCS: 36415; 43239; 71046; 71270; 74220; 80053; 83605; 83735; 83880; 84484; 85025; 85610; 85730; 87040; 87070; 87205; 93005; 94640; 94760; 96365; 99285

== ENCOUNTER → 2019-04-17 | Outpatient (CLI) | payer MEDICARE ==
--- NOTE | 2019-04-19 23:31 | PE ---
Nuclear medicine PET/CT HISTORY: Lung carcinoma, subsequent Patient received 12.7 mCi F-18 FDG intravenously in delayed scanning was performed from the skull bas e to the mid thighs. Localization and attenuation correction CT scan was performed. Correlation to chest CT dated 10/14/2018, nuclear medicine PET/CT 06/07/2017 Neck and chest: Root of the aorta measures 6.2 cm. There is no evident cervical or supraclavicular ad enopathy. No mediastinal, axillary, or hilar adenopathy. Increased attenuation at the right lung apex is likely career services representative of scar. There is a thoracic aortic aneurysm the transverse aorta measuring 5.1 cm. Increased attenuation along the right hemidiaphragm suggests scarring present at the right l milagro base on axial image #135, no associated uptake. Aortic stent graft present within the aorta, ther e is metallic density present causing some artifact. Aortic aneurysm measures approximately 6.8 cm si milar to prior chest CT. Is a stent involving the celiac axis, portion of intraluminal stent is prese nt coursing into the abdominal aorta to the right midline. Proximal descending aorta 4.5 cm. Dilated air-filled esophagus is again noted. Patient is post median sternotomy. There are coronary artery rosa cifications present. ABDOMEN: There is no adrenal mass. No evident liver mass. Patient is post cholecystectomy. No retrope ritoneal adenopathy. Diverticular changes associated with the sigmoid colon. No pelvic adenopathy or free fluid. Osseous structures are within normal limits. Bowel uptake is thought to be physiologic. IMPRESSION: Recurrence is not evident. Thoracic and abdominal aortic aneurysms, root of the aorta is thought to have increased in size in the interval. No suspicious hypermetabolic uptake. Additional fi ndings above.
== END | disposition home or self-care (01) ==
LOC: RADPETMAIN 12:34
PROVIDERS: ATTEND Radiology Radiation Oncology
DX: I71.4 Abdominal aortic aneurysm, without rupture (principal); C34.11 Malignant neoplasm of upper lobe, right bronchus or lung; Z92.3 Personal history of irradiation; Z87.891 Personal history of nicotine dependence
CPT/HCPCS: 78815; A9552

== ENCOUNTER → 2020-09-26 | Outpatient (CLI) | payer MEDICARE ==
--- NOTE | 2020-09-26 17:43 | CT ---
EXAMINATION TYPE: CT chest w con DATE OF EXAM: 09/26/2020 COMPARISON: CT chest 10/14/2018 HISTORY: lung ca CT DLP: 645.1 mGycm Automated exposure control for dose reduction was used. CONTRAST: CT scan of the chest is performed with IV Contrast, patient injected with 100 mL of Isovue 300. FINDINGS: LUNGS: The lungs are moderately appearance. Subpleural nodular density in the right lower lobe, axia l image #25 is stable, abnormal soft tissue superolaterally in the right chest shows a similar appear ance, there is some ill-defined soft tissue density present via left pleural thickening There is no p leural effusion or pneumothorax seen. The tracheobronchial tree is patent. MEDIASTINUM: There are no greater than 1 cm hilar or mediastinal lymph nodes. No pericardial effusi on is seen. The previously identified debris filled esophagus has improved in the interval AORTA: Ascending aortic aneurysm measures 4.9 cm similar to prior exam, proximal descending aorta is 3.6 cm similar to prior, the root of the aorta measures 5.9 cm which is increased compared to prior when it measured 5.3 cm, there are coronary artery calcifications. There is a stent present in the de scending aorta as on prior, aneurysm is close to 7 cm at the level of the hiatus where as on prior ex am it measured approximately 6.9 cm. OTHER: No additional significant abnormality is seen. IMPRESSION: There is been progression of patient's aneurysm as described. Mildly prominent soft tiss ue in the subpleural location in the right upper lobe seen on prior exam may be somewhat more conflue nt as compared to prior PET/CT May BE of benefit
== END | disposition home or self-care (01) ==
LOC: RADCTMAIN 15:05
PROVIDERS: ATTEND Internal Medicine
DX: C34.11 Malignant neoplasm of upper lobe, right bronchus or lung (principal); I71.2 Thoracic aortic aneurysm, without rupture
CPT/HCPCS: 82565; 84520; 71260; 36415; Q9967